=== PATIENT | female | born 1945 | race Caucasian/White ===

== ENCOUNTER 2024-09-12 13:25 | Day surgery (SDC) | payer OTHER, SELFPAY ==
[2024-09-12] VITALS (12 sets, daily range): BP systolic 129–202; BP diastolic 72–115; PULSE 73–105; RESP 12–24; TEMP 36.5–37.2; O2SAT 93–99; BMI 28.3
--- NOTE | 2024-09-12 14:26 | SUR.PREOP ---
PATIENT HAS SPINAL STIMULATOR TO LEFT SIDE
[2024-09-12] MEDS: DiphenhydrAMINE INJ 50 MG/ML VIAL 25 MG IV (15:10)
[2024-09-12] MEDS: fentaNYL CIT INJ 50 mCg/ML AMP 2ML (ASD USE ONLY) IV (15:22)
[2024-09-12] MEDS: MEPERIDINE INJ 25 MG/ML VIAL (ASD USE ONLY) IV (15:22)
[2024-09-12] MEDS: MIDAZOLAM INJ 1 MG/ML VIAL 2 ML (ASD USE ONLY) 2 MG IV (15:24)
== END 2024-09-12 16:35 | disposition home or self-care (01) ==
PROVIDERS: PCP Internal Medicine; Referring Provider Specialist; Visit Provider Specialist
PROC: 0DBE8ZX Excision of Large Intestine, Via Natural or Artificial Opening Endoscopic, Diagnostic (ICD-10-PCS; CPT 45380; principal; 2024-09-12 14:00)
PROC: (CPT 43239; 2024-09-12 14:00)
DX: D12.5 Benign neoplasm of sigmoid colon (principal); K64.9 Unspecified hemorrhoids; K57.30 Diverticulosis of large intestine without perforation or abscess without bleeding; K21.00 Gastro-esophageal reflux disease with esophagitis, without bleeding; K29.70 Gastritis, unspecified, without bleeding; K22.2 Esophageal obstruction
CPT/HCPCS: 45380; 43248; 43239; A4649; C1769; J1200; J2175; J2250; J3010

== ENCOUNTER → 2024-12-22 | Outpatient (CLI) | payer OTHER, SELFPAY ==
[2024-12-22 10:15] LABS: Basophils # (Auto) 0.1 Thou/mm3 (0.0-0.2); Basophils % (Auto) 1 % (0-2.5); Eosinophils # (Auto) 0.1 Thou/mm3 (0.0-0.5); Eosinophils % (Auto) 1 % (0-10); Hematocrit 35.4 % (36.0-46.0); Hemoglobin 11.7 g/dL (12.0-16.0); Immature Granulocytes % (Auto) 0 % (0-0); Immature Granulocytes Auto 0.02 Thou/mm3 (0.00-0.00); Lymphocytes # (Auto) 2.2 Thou/mm3 (1.0-4.8); Lymphocytes % (Auto) 32 % (10-50); Mean Corpuscular HGB Conc 33.1 g/dl (31.0-37.0); Mean Corpuscular Volume 88 fL (80-100); Monocytes # (Auto) 0.7 Thou/mm3 (0.0-0.8); Monocytes % (Auto) 10 % (0-12); Neutrophils # (Auto) 3.7 Thou/mm3 (1.8-7.7); Neutrophils % (Auto) 56 % (37-80); Nucleated Red Blood Cell % 0 /100 WBC (0); Platelet Count 365 Thou/mm3 (140-440); Red Blood Count 4.03 Miln/mm3 (4.00-5.20); White Blood Count 6.7 Thou/mm3 (3.6-11.0)
[2024-12-22 10:56] LABS: Collection Type, Urine Clean Catch
[2024-12-22 10:58] LABS: Alanine Aminotransferase 22 U/L (10-49); Albumin, Serum 4.3 gm/dL (3.4-4.8); Albumin/Globulin Ratio 1.5 (1.2-2.2); Alkaline Phosphatase 101 U/L (46-116); Anion Gap 10 (7-16); Aspartate Amino Transferase 16 U/L (0-34); BUN/Creatinine Ratio 18 Ratio (12-20); Blood Urea Nitrogen 22 mg/dL (9-23); Calcium 9.5 mg/dL (8.3-10.6); Calcium (Corrected) 9.5 mg/dL (8.5-10.1); Carbon Dioxide 25.3 mMol/L (20.0-31.0); Cardiac Risk Estimate 2.7 RATIO (3.7-5.6); Chloride 107 mMol/L (98-107); Cholesterol 202 mg/dL (132-200); Creatinine (Component) 1.2 mg/dL (0.6-1.3); Globulin 2.9 gm/dL (2.3-3.5); Glucose 103 mg/dL (74-106); HDL Cholesterol 75 mg/dL (40-60); LDL Cholesterol,Calculated 101 mg/dL (0-130); Osmolality,Calculated 286 (275-295); Potassium 3.8 mMol/L (3.4-5.1); Sodium 142 mMol/L (136-145); Thyroid Stimulating Hormone 1.79 uIU/mL (0.55-4.78); Total Protein 7.2 gm/dL (5.7-8.2); Triglycerides 131 mg/dL (30-150); eGFR 46 See Note
[2024-12-22 11:41] LABS: Bacteria,Urine 3+; Bilirubin,Urine Negative (Negative); Blood,Urine Negative (Negative); Clarity,Urine Turbid (Clear/Hazy); Color,Urine Yellow (Lt Yel-Yel); Glucose, Urine Negative (Negative); Ketones,Urine Negative (Negative); Leukocyte Esterase,Urine Positive (Negative); Nitrite,Urine Positive (Negative); Protein,Urine Trace (Neg - Trace); RBC,Urine 1 /hpf (0-3); Squamous Epithelial Cell,Urine 4 /hpf (0-5); Urobilinogen,Urine Negative mg/dL (0.0-1.0); WBC,Urine 19 /hpf (0-5)
== END | disposition home or self-care (01) ==
LOC: COPL 09:44
PROVIDERS: PCP Internal Medicine; Referring Provider Internal Medicine; Visit Provider Internal Medicine
DX: E78.5 Hyperlipidemia, unspecified (principal); I10 Essential (primary) hypertension; E03.9 Hypothyroidism, unspecified
CPT/HCPCS: 36415; 80053; 80061; 81001; 84443; 85025

== ENCOUNTER → 2025-04-23 | Outpatient (CLI) | payer OTHER, SELFPAY ==
--- NOTE | 2025-04-23 10:18 | XR_ITS ---
Examination: Abdomen AP single view Technique: AP portable supine abdomen, single view Exam date and time: April 23, 2025, 1109 hours INDICATIONS: Nausea vomiting beginning one week ago. FINDINGS: Spinal stimulator. Surgical clips upper right abdomen. Nonobstructive bowel gas pattern. No free air IMPRESSION: Nonobstructive bowel gas pattern
== END | disposition home or self-care (01) ==
LOC: CDIM 10:04
PROVIDERS: PCP Internal Medicine; Referring Provider Internal Medicine; Visit Provider Internal Medicine
DX: R11.2 Nausea with vomiting, unspecified (principal)
CPT/HCPCS: 74018

== ENCOUNTER 2025-08-05 10:00 | Day surgery (SDC) | payer OTHER, SELFPAY ==
[2025-08-04 14:27] VITALS: BMI 35.5
[2025-08-05] VITALS (11 sets, daily range): BP systolic 124–174; BP diastolic 53–80; PULSE 69–87; RESP 14–19; TEMP 36.6–36.7; O2SAT 92–100; BMI 31.5
[2025-08-05] MEDS: SODIUM CHLORIDE 0.9% 500 ML 500 ML 20 ML IV (12:35)
[2025-08-05] MEDS: BENZOCAINE 20% (Hurricaine) SPRAY 1 DOSE TOP (12:35)
[2025-08-05] MEDS: MIDAZOLAM INJ 1 MG/ML VIAL 2 ML (ASD USE ONLY) 2 MG IVP (12:42)
[2025-08-05] MEDS: fentaNYL CIT INJ 50 mCg/ML AMP 2ML (ASD USE ONLY) IVP (12:42)
--- NOTE | 2025-08-05 13:06 | SUR.PHASEII ---
1259 patient is sleepy and arousable, breathing unlabored, s/p EGD with dilatation with IV sedation, report received from Leonor BLANCO
--- NOTE | 2025-08-05 13:31 | SUR.PHASEII ---
3759 patient is awake, alert, breathing unlabored,meets discharge criteria, discharge instructions given to patient and daughter, patient discharged home in wheelchair with all belongings.
== END 2025-08-05 13:30 | disposition home or self-care (01) ==
PROVIDERS: PCP Internal Medicine; Referring Provider Specialist; Visit Provider Specialist
PROC: (CPT 43239; principal; 2025-08-05 11:15)
DX: K29.50 Unspecified chronic gastritis without bleeding (principal); K20.90 Esophagitis, unspecified without bleeding; K22.2 Esophageal obstruction; K57.30 Diverticulosis of large intestine without perforation or abscess without bleeding
CPT/HCPCS: 43239; 43248; A4649; C1769; J1200; J2250; J3010; J7999; A4646; A9270